=== PATIENT | female | born 1970 | race Caucasian/White ===

== ENCOUNTER 2020-04-19 18:06 | Emergency (ER) | payer OTHER ==
[2020-04-19 18:12] VITALS: BP 117/48; PULSE 73; TEMP 97.2; BMI 21.6
[2020-04-19] MEDS ORDERED: DIPHTH,PERTUSS(ACELL),TET 0.5 ML DISP.SYRIN IM ONE ×2 (18:47→18:54)
[2020-04-19] MEDS ORDERED: IBUPROFEN 400 MG TABLET (FP) PO ONE ×2 (19:36)
--- NOTE | 2020-04-19 19:39 | PDOC ---
History of Present Illness - General Chief Complaint: Laceration Stated Complaint: LACERATION TO FINGERS Time Seen by Provider: 04/19/20 18:21 History Source: Patient Exam Limitations: Clinical Condition - History of Present Illness Initial Comments: 04/19/20 19:40 Patient with no significant past medical history present with complaint of laceration to left little finger and ring finger status post accidentally cutting finger on bathroom tile. Patient does not recall last tetanus vaccine. Denies numbness or tingling sensation to fingers. Denies difficulty moving fingers. Denies any other symptoms Timing/Duration: reports: this evening Past History - Medical History Allergies/Adverse Reactions: Allergies Allergy/AdvReac Type Severity Reaction Status Date / Time No Known Allergies Allergy Verified 04/19/20 18:08 Home Medications: Ambulatory Orders Amoxicillin/Potassium Clav [Augmentin 875-125 Tablet] 1 each PO BID 7 Days #14 tablet 04/19/20 Ibuprofen 600 mg PO Q8H PRN #16 tablet 04/19/20 COPD: No Other medical history: DENIES - Reproductive History Is Patient Now?: No - Immunization History Immunization Up to Date: No - Psycho-Social/Smoking History Smoking History: Never smoked - Substance Abuse Hx (Audit-C & DAST Scrn) How often the patient has a drink containing alcohol: Never Score: In Men: 4 or > Positive; In Women: 3 or > Positive: 0 Screen Result (Pos requires Nsg. Audit-10AR): Negative In the last yr the pt used illegal drug/Rx for NonMed reason: No Score: Yes response is considered Positive: 0 Screen Result (Positive result requires Nsg. DAST-10): Negative Review of Systems - Review of Systems Able to Perform ROS?: Yes Is the patient limited Japanese proficient: No Constitutional: No: Chills, Fever, Malaise HEENTM: No: Symptoms Reported Respiratory: No: Symptoms reported Cardiac (ROS): No: Symptoms Reported Musculoskeletal: Yes: Symptoms Reported, See HPI, Muscle Pain (left ring and little finger pain) Integumentary: Yes: Symptoms Reported, See HPI, Other (laceration to left ring and little finger) Neurological: No: Symptoms reported, See HPI, Numbness, Paresthesia, Tingling All Other Systems: Reviewed and Negative *Physical Exam - Vital Signs Last Vital Signs Temp Pulse Resp BP Pulse Ox 97.2 F L 73 20 117/48 L 100 04/19/20 18:08 04/19/20 18:08 04/19/20 18:08 04/19/20 18:08 04/19/20 18:08 - Physical Exam 04/19/20 19:46 GENERAL: Well developed, well nourished. Awake and alert. No acute distress. PULMONARY: No evidence of respiratory distress. MUSCULOSKELETAL : Moderate tenderness over distal phalange of left ring finger with mild tenderness to distal phalange of left little finger. 5 out of 5 strength to fingers. Normal sensory to fingers. Full range of motion of left ring and little fingers. No bony deformities SKIN: Warm and dry. Normal capillary refill.2 cm laceration to distal phalange of plantar aspect of left ring finger with no active bleeding. Another 1.5 cm laceration to distal phalange of a plantar aspect of left little finger with no active bleeding. Full range of motion of fingers. Normal strength of fingers. Normal sensory to tip of left ring and little finger. Normal capillary refill to tip of left ring and little finger NEUROLOGICAL: Alert, awake, appropriate. No motor deficits in the lower extremities. Gait is normal without ataxia. PSYCHIATRIC: Cooperative. Good eye contact. Appropriate mood and affect. General Appearance: Yes: Nourished, Appropriately Dressed. No: Apparent Distress Procedures - Laceration/Wound Repair Left Anterior Distal Plantar Finger 4th digit Wound Length: to 2.5 cm Wound Explored: clean Wound's Depth, Shape: superficial, linear Irrigated w/ Saline: Yes Betadine Prep: Yes Anesthesia: 1% Lidocaine Amount of Anesthetic (ccs): 2 Wound Repaired With: Sutures Suture Size/Type: 5:0, nylon Number of Sutures: 4 Layer Closure: No Sterile Dressing Applied: Yes Sling Applied: No Left Anterior Distal Plantar Finger 5th digit Wound Length: to 2.5 cm Wound Explored: clean Wound's Depth, Shape: superficial, linear Irrigated w/ Saline: Yes Betadine Prep: Yes Anesthesia: 1% Lidocaine Amount of Anesthetic (ccs): 1 Wound Repaired With: Sutures Suture Size/Type: 5:0, nylon Number of Sutures: 3 Layer Closure: No Sterile Dressing Applied: Yes Splint Applied: No Sling Applied: No Progress: 04/19/20 19:46 Wound to left ring finger cleaned with Betadine and irrigated with saline. Wound infiltrated with 2 cc 1% lidocaine. Wound closed with 4 interrupted 5-0 nylon sutures with close proximation. Wound to left little finger cleaned with Betadine and infiltrated with 1% 1 cc lidocaine. Wound closed with 3 interrupted 5-0 nylon sutures with close proximation. Bacitracin applied to wound and wound covered adhesive bandage. Patient tolerated procedure well. Finger covered with tubular finger gauze to help protect fingers. Tetanus vaccine given to nurse ED Treatment Course - Medications Given in the ED: ED Medications Discontinued Medications Generic Name Dose Route Start Last Admin Trade Name Freq PRN Reason Stop Dose Admin Diphtheria/Tetanus/Acell Pertussis 0.5 ml 04/19/20 18:47 04/19/20 18:54 Boostrix - IM 04/19/20 18:48 0.5 ml .ONCE ONE Administration Medical Decision Making - Medical Decision Making 04/19/20 19:41 Patient with no significant past medical history present with complaint of laceration to left little finger and ring finger status post accidentally cutting finger on bathroom tile. Patient does not recall last tetanus vaccine. Denies numbness or tingling sensation to fingers. Denies difficulty moving fingers. Denies any other symptoms Exam significant for 2 cm laceration to distal phalange of plantar aspect of left ring finger with no active bleeding. Another 1.5 cm laceration to distal phalange of a plantar aspect of left little finger with no active bleeding. Full range of motion of fingers. Normal strength of fingers. Normal sensory to tip of left ring and little finger. Normal capillary refill to tip of left ring and little finger. Wound to left ring finger cleaned with Betadine and irrigated with saline. Wound infiltrated with 2 cc 1% lidocaine. Wound closed with 4 interrupted 5-0 nylon sutures with close proximation. Wound to left little finger cleaned with Betadine and infiltrated with 1% 1 cc lidocaine. Wound closed with 3 interrupted 5-0 nylon sutures with close proximation. Bacitracin applied to wound and wound covered adhesive bandage. Patient tolerated procedure well. Finger covered with tubular finger gauze to help protect fingers. Tetanus vaccine given to nurse. Patient educated on continues home wound care at home. Patient stable for discharge on Augmentin antibiotic for infection prophylaxis and Motrin PRN for pain with follow-up in 1 week for suture removal. Patient voiced understanding discharge instructions and left department without complication Discharge - Discharge Information Problems reviewed: Yes Clinical Impression/Diagnosis: Laceration of left little finger w/o foreign body w/o damage to nail Qualifiers: Encounter type: initial encounter Qualified Code(s): S61.217A - Laceration without foreign body of left little finger without damage to nail, initial encounter Laceration of left ring finger w/o foreign body w/o damage to nail Qualifiers: Encounter type: initial encounter Qualified Code(s): S61.215A - Laceration without foreign body of left ring finger without damage to nail, initial encounter Condition: Stable Disposition: HOME - Admission No - Additional Discharge Information Prescriptions: Amoxicillin/Potassium Clav [Augmentin 875-125 Tablet] 1 each PO BID 7 Days #14 tablet Ibuprofen 600 mg PO Q8H PRN #16 tablet PRN Reason: pain - Follow up/Referral - Patient Discharge Instructions Patient Printed Discharge Instructions: DI for Laceration Repair Additional Instructions: Keep wound clean and dry for the next 24 hours. Remove gauze from wound after 2 days and apply bacitracin or Neosporin to wound twice a day. Take prescribed antibiotics and finish it. Follow-up in 1 week for suture removal - Post Discharge Activity
== END 2020-04-19 19:43 | disposition home or self-care (01) ==
LOC: JERFT 18:06
PROC: 0HQGXZZ Repair Left Hand Skin, External Approach (ICD-10-PCS; principal; 2020-04-19)
PROC: 3E0234Z Introduction of Serum, Toxoid and Vaccine into Muscle, Percutaneous Approach (ICD-10-PCS; 2020-04-19)
DX: S61.217A Laceration without foreign body of left little finger without damage to nail, initial encounter (principal); S61.215A Laceration without foreign body of left ring finger without damage to nail, initial encounter
CPT/HCPCS: 12002-25; 90471; 90715; 99285-25

== ENCOUNTER 2021-04-06 14:25 | Emergency (ER) | payer OTHER ==
[2021-04-06 14:32] VITALS: TEMP 98.3; BMI 22.8
[2021-04-06] MEDS ORDERED: LACTATED RINGERS SOLUTION 1000 ML INFUS.BAG IV ONE (16:37)
[2021-04-06] MEDS ORDERED: ACETAMINOPHEN 1000 MG/100 ML VIAL (NON FORMULARY) IVPB ONE (16:41)
[2021-04-06] MEDS ORDERED: METOCLOPRAMIDE HCL INJECTION 10 MG/2 ML VIAL IVPUSH ONE (17:01)
[2021-04-06] MEDS ORDERED: ACETAMINOPHEN INJECTION 100 ML IVPB ONE (17:22)
[2021-04-06] MEDS ORDERED: METOCLOPRAMIDE HCL INJECTION 10 MG/2 ML VIAL ONE (17:22)
[2021-04-06 17:44] LABS: EOS % 2.9 % (0-4.5); HEMATOCRIT 36.5 % (32.4-45.2); HEMOGLOBIN 12.8 GM/dL (10.7-15.3); LYMPH % 36.7 % (8-40); MCH 30.6 pg (25.7-33.7); MEAN CELL VOLUME 87.5 fl (80-96); MEAN PLT VOLUME 7.3 fl (7.5-11.1); MONO % 7.3 % (3.8-10.2); NEUT % 52.1 % (42.8-82.8); PLATELET COUNT 383 10^3/uL (134-434); RBC 4.17 M/mm3 (3.60-5.2); WHITE BLOOD COUNT 9.6 K/mm3 (4.0-10.0)
[2021-04-06 17:53] LABS: PH,URINE 8.5 (5.0-8.0); URINE APPEARANCE Clear; URINE BILIRUBIN Negative (NEGATIVE); URINE COLOR Yellow; URINE GLUCOSE (UA) Negative (NEGATIVE); URINE KETONE Negative (NEGATIVE); URINE LEUK ESTERASE Negative (NEGATIVE); URINE NITRITE Negative (NEGATIVE); URINE PROTEIN Negative (NEGATIVE); URINE UROBILINOGEN 0.2 mg/dL (0.2-1.0)
[2021-04-06 17:58] LABS: CHLORIDE 106 mmol/L (98-107); SODIUM 138 mmol/L (136-145)
[2021-04-06 18:01] LABS: ALBUMIN 3.5 g/dl (3.4-5.0); ANION GAP 6 MMOL/L (8-16); BLOOD UREA NITROGEN 16.7 mg/dL (7-18); CO2 27 mmol/L (21-32); MAGNESIUM 2.4 mg/dL (1.8-2.4)
[2021-04-06 18:02] LABS: GLUCOSE,RANDOM 77 mg/dL (74-106)
[2021-04-06 18:04] LABS: SGOT/AST 48 U/L (15-37); SGPT/ALT 49 U/L (13-61)
[2021-04-06 18:06] LABS: CREATININE 0.5 mg/dL (0.55-1.3)
[2021-04-06 18:07] LABS: BILIRUBIN,TOTAL 0.3 mg/dL (0.2-1); TOT PROT 7.4 g/dl (6.4-8.2)
[2021-04-06 18:08] LABS: ALK PHOS 74 U/L (45-117)
[2021-04-06 18:40] VITALS: BP 113/59; PULSE 63
== END 2021-04-06 18:51 | disposition home or self-care (01) ==
LOC: JER 14:25
PROC: 3E0333Z Introduction of Anti-inflammatory into Peripheral Vein, Percutaneous Approach (ICD-10-PCS; principal; 2021-04-06)
PROC: 3E033GC Introduction of Other Therapeutic Substance into Peripheral Vein, Percutaneous Approach (ICD-10-PCS; 2021-04-06)
DX: R00.1 Bradycardia, unspecified (principal)
CPT/HCPCS: 36415; 80053; 81003; 83735; 84443; 84484; 85025; 87086; 93005; 93010; 99284-25; J0131

== ENCOUNTER 2022-04-03 14:29 | Emergency (ER) | payer OTHER ==
[2022-04-03 14:44] VITALS: BP 104/65; PULSE 64; RESP 17; TEMP 98.2; BMI 22.4
[2022-04-03] MEDS ORDERED: MAG HYDROX/AL HYDROX/SIMETH -MYLANTA- ORAL SUSPENSION PO ONE (17:22)
[2022-04-03] MEDS ORDERED: ACETAMINOPHEN 1000 MG/100 ML BAG IVPB ONE (17:22)
[2022-04-03] MEDS ORDERED: FAMOTIDINE 20 MG/50 ML IVPB 20 MG/50 ML MG IVPB ONE ×2 (17:22→18:14)
[2022-04-03] MEDS ORDERED: ACETAMINOPHEN INJECTION 100 ML IVPB ONE (18:14)
[2022-04-03] MEDS ORDERED: MAG HYDROX/AL HYDROX/SIMETH 30 ML UNIT-DOSE CUP ONE (18:14)
[2022-04-03 18:23] LABS: URINE APPEARANCE CLEAR; URINE BILIRUBIN NEGATIVE (NEGATIVE); URINE COLOR YELLOW; URINE GLUCOSE (UA) NEGATIVE (NEGATIVE); URINE KETONE TRACE (NEGATIVE); URINE LEUK ESTERASE NEGATIVE (NEGATIVE); URINE NITRITE NEGATIVE (NEGATIVE); URINE PROTEIN TRACE (NEGATIVE)
[2022-04-03 18:24] LABS: EOS % 2.5 % (0-4.5); HEMATOCRIT 38.2 % (32.4-45.2); HEMOGLOBIN 13.3 GM/dL (10.7-15.3); LYMPH % 34.2 % (8-40); MCHC 34.9 g/dl (32.0-36.0); MEAN PLT VOLUME 7.3 fl (7.5-11.1); MONO % 6.7 % (3.8-10.2); NEUT % 55.6 % (42.8-82.8); PLATELET COUNT 346 10^3/uL (134-434); RBC 4.44 M/mm3 (3.60-5.2); RDW 13.3 % (11.6-15.6); WHITE BLOOD COUNT 10.6 K/mm3 (4.0-10.0)
[2022-04-03 18:50] LABS: ALBUMIN 3.8 g/dl (3.4-5.0); CALCIUM 9.4 mg/dL (8.5-10.1)
[2022-04-03 18:51] LABS: BLOOD UREA NITROGEN 16.7 mg/dL (7-18)
[2022-04-03 18:53] LABS: CREATININE 0.6 mg/dL (0.55-1.3)
[2022-04-03 18:55] LABS: BILIRUBIN,TOTAL 0.3 mg/dL (0.2-1); TOT PROT 7.6 g/dl (6.4-8.2)
== END 2022-04-03 20:01 | disposition home or self-care (01) ==
LOC: JER 14:29
PROC: 3E033GC Introduction of Other Therapeutic Substance into Peripheral Vein, Percutaneous Approach (ICD-10-PCS; principal; 2022-04-03)
DX: R10.11 Right upper quadrant pain (principal); K76.0 Fatty (change of) liver, not elsewhere classified
CPT/HCPCS: 36415; 76705-TC; 80053; 81003; 83690; 84484; 84703; 85025; 87077; 87086; 93005; 93010; 99285-25

== ENCOUNTER 2022-11-04 21:21 | Emergency (ER) | payer OTHER ==
[2022-11-04 21:39] VITALS: BP 118/77; PULSE 71; RESP 20; TEMP 98; BMI 24.2
[2022-11-04] MEDS ORDERED: diazePAM 5 MG TABLET PO ONE (22:00)
[2022-11-04] MEDS ORDERED: KETOROLAC TROMETHAMINE 30 MG/1 ML VIAL IM ONE (22:00)
[2022-11-04] MEDS ORDERED: diazePAM 5 MG TABLET ONE (22:31)
[2022-11-04] MEDS ORDERED: KETOROLAC TROMETHAMINE 30 MG/1 ML VIAL ONE (22:31)
[2022-11-05] MEDS ORDERED: LIDOCAINE 5% TOPICAL PATCH TP ONE (00:43)
[2022-11-05] MEDS ORDERED: KETOROLAC TROMETHAMINE 60 MG/2 ML VIAL IM ONE (00:44)
[2022-11-05] MEDS ORDERED: KETOROLAC TROMETHAMINE 30 MG/1 ML VIAL ONE (00:45)
[2022-11-05] MEDS ORDERED: LIDOCAINE 5% TOPICAL PATCH ONE (00:45)
[2022-11-05] MEDS ORDERED: LIDOCAINE PATCH REMOVAL MC SCH (22:00)
== END 2022-11-05 01:02 | disposition home or self-care (01) ==
LOC: JER 21:21
PROC: 3E0233Z Introduction of Anti-inflammatory into Muscle, Percutaneous Approach (ICD-10-PCS; principal; 2022-11-04)
PROC: 3E0233Z Introduction of Anti-inflammatory into Muscle, Percutaneous Approach (ICD-10-PCS; 2022-11-05)
DX: M25.562 Pain in left knee (principal); M25.552 Pain in left hip; M54.50 Low back pain, unspecified; M53.3 Sacrococcygeal disorders, not elsewhere classified; R10.13 Epigastric pain; W01.0XXA Fall on same level from slipping, tripping and stumbling without subsequent striking against object, initial encounter; Y93.66 Activity, soccer
CPT/HCPCS: 72100-TC-FY; 72170-TC-FY; 73502-TC-LT-FY; 73502-TC-RT-FY; 73552-TC-LT-FY; 73562-TC-LT-FY; 73562-TC-RT-FY; 99284-25